=== PATIENT | female | born 1980 | race Caucasian/White ===

== ENCOUNTER 2017-02-17 09:52 | Inpatient (IN) | payer MEDICAID ==
[~2017-02-17] VITALS: Ht 157.5 cm; Wt 66.2 kg
[2017-02-17] MEDS ORDERED: PRENAT PO (10:23)
[2017-02-17 10:24] VITALS: BP 113/56; PULSE 85; RESP 18; Ht 157.5 cm; Wt 66.2 kg
--- NOTE | 2017-02-17 11:14 | TRIAGE ---
OB Triage Datetime Report Generated by CPN: 02/17/2017 11:12 Datetime: 02/17/2017 11:04 Vaginal Exam Dilatation (cms): 3.0 Effacement (%): 50 Station: -2 Exam By: [facility] Membrane Status: Ruptured Membranes Rupture Method: Spontaneous Amniotic Fluid Color: Clear Amniotic Fluid Amount: Moderate Amniotic Fluid Odor: None Vaginal Bleeding: Normal Show Nitrazine: Positive Cervix, Consistency: Moderate Cervix, Position: Midposition Datetime: 02/17/2017 10:22 Assessment Type: Triage Maternal Assessment Level of Consciousness: Fully Conscious DTR's/Clonus: DTRs 2+; No Clonus Headache: Denies Blurred Vision: No Respiratory Effort: Unlabored; Regular Rhythm; Equal Expansion Breath Sounds, Left: Clear and Equal Breath Sounds, Right: Clear and Equal Nausea/Vomiting: Denies RUQ Epigastric Pain: Denies Lower Extremities Edema: None Degree: None Upper Extremities Edema: None Degree: None Facial Edema: None Fall Risk Assessment History of Falling: (0) No Secondary Diagnosis: (0) No Ambulatory Aid: (0) Bedrest/Nurse Assist IV Therapy: (0) No Gait: (0) Normal/Bedrest/Immobile Mental Status: (0) Oriented to Own Ability Fall Score: 0 Fall Risk Score Definition: No Risk: No action required Datetime: 02/17/2017 10:19 Time of Arrival: 02/17/2017 09:47 EGA: 36.5 Arrived By: Ambulatory Arrived From: Home Chief Complaint: pt here c/o possible srom Movement: Present Contractions: Denies/Absent Rupture of Membranes: Unsure Vaginal Bleeding: None Vaginal Discharge: Denies Recent Sexual Intercouse: Denies Abdominal Trauma: Not Applicable Patient Complaints: None Time Provider Notified: 02/17/2017 10:37 Provider Notified: MASTER Initial Plan: ROM PLUS/BPP/SVE Datetime: 02/17/2017 10:18 Labor Evaluation Monitor Mode: External Heart Rate Monitor Mode: External US
--- NOTE | 2017-02-17 11:18 | RADRPT ---
PROCEDURE: OB ultrasound for biophysical profile CLINICAL INDICATION: Contractions. Biophysical profile. . TECHNIQUE: Multiple sonographic images of the pelvis were obtained. Transabdominal view of the gr avid uterus are available for review. The images were reviewed on a PACS workstation. COMPARISON: None FINDINGS: breathing movement = 2/2 tone = 2/2 motion = 2/2 CHAD = 2/2 Single intrauterine gestation is identified in cephalic position. heart rate is 174 bpm. Plac enta is anterior without evidence for abruption or previa. CHAD measures 13.3 cm, within normal limi ts. IMPRESSION: 1. Single live intrauterine gestation. 2. Biophysical profile = 8/8. 3. CHAD = 13.3 cm. RPTAT: EE .Juvenal Velez MD, Date Time Electronically viewed and signed by .Juvenal Velez MD, on 02/17/2017 11:18 .R/
[2017-02-17] MEDS ORDERED: LACTATED RINGER'S 1,000 ML IV PRN (12:10)
[2017-02-17 12:24] LABS: BASOPHILS % 0.1 % (0.0-2.0); EOSINOPHILS % 0.4 % (0.0-7.0); HEMOGLOBIN 12.1 g/dl (12.0-16.0); LYMPHOCYTES # 1.2 10^3/ul (0.8-2.9); LYMPHOCYTES % 15.4 % (15.0-51.0); MEAN CORPUSCULAR HEMOGLOBIN 33.3 pg (29.0-33.0); MEAN CORPUSCULAR HGB CONC 35.6 g/dl (32.0-37.0); MEAN CORPUSCULAR VOLUME 93.7 fl (82.0-101.0); MEAN PLATELET VOLUME 12.9 fl (7.4-10.4); MONOCYTE # 0.4 10^3/ul (0.3-0.9); MONOCYTES % 5.1 % (0.0-11.0); NEUTROPHILS % 78.5 % (39.0-77.0); PLATELET COUNT 140 10^3/UL (140-415); RED BLOOD COUNT 3.63 10^6/ul (4.20-5.40); RED CELL DISTRIBUTION WIDTH 12.9 % (11.5-14.5)
[2017-02-17] MEDS ORDERED: OXYTOCIN 30 UNITS/LR 500 ML IV SCH ×3 (12:30)
[2017-02-17] MEDS ORDERED: AMPICILLIN 2 GM/NS (PMX) 100 ML IV ONE (12:30)
[2017-02-17] MEDS ORDERED: MISOPROSTOL 200 MCG TAB PR PRN ×2 (12:30→22:30)
[2017-02-17] MEDS ORDERED: OXYCODONE/ACETAMINOPHEN (5/325) TAB PO PRN (12:30)
[2017-02-17] MEDS ORDERED: CARBOPROST 250 MCG INJ IM PRN ×2 (12:30→22:30)
[2017-02-17] MEDS ORDERED: METHYLERGONOVINE 0.2 MG INJ IM PRN ×2 (12:30→22:30)
[2017-02-17] MEDS ORDERED: IBUPROFEN 600 MG TAB PO PRN (12:30)
[2017-02-17] MEDS ORDERED: BUTORPHANOL 2 MG INJ IV PRN (12:30)
[2017-02-17] MEDS ORDERED: LIDOCAINE 1% (MPF) 30 ML INJ INJ PRN (12:30)
[2017-02-17] MEDS ORDERED: OXYTOCIN 30 UNITS/LR 500 ML IV PRN ×2 (12:30→22:30)
[2017-02-17] MEDS: LACTATED RINGER'S 1,000 ML IV SCH ×2 (13:00→19:01)
[2017-02-17 13:21] LABS: INR 0.96; PROTIME 12.8 Sec (12.2-14.2)
[2017-02-17 13:22] LABS: PARTIAL THROMBOPLASTIN TIME 30.5 Sec (25.0-35.0)
[2017-02-17] MEDS ORDERED: AMPICILLIN 1 GM/NS (PMX) 50 ML IV SCH (15:30)
--- NOTE | 2017-02-17 19:37 | LDN ---
Date/Time of Note Date/Time of Note DATE: 02/17/17 TIME: 19:35 Delivery Summary Weeks of Gestation 36+ Placenta Delivered: Spontaneously Meconium: none Episiotomy: No Anesthesia type: None Estimated blood loss: 200 Sponge & Needle done & correct: Yes All needle counts correct: Yes Any foreign bodies felt in the: No Problems: Infant Delivery Information Apgars 1 Minute: 9 5 Minute: 9 Suctioning Nose & mouth suctioned at kylee: Yes Delee suction performed: Yes Umbilical Cord Umbilical cord with: 3 Vessels Cord presentations: no nuchal cord Cord Blood was obtained: Yes Mother & Baby Disposition Disposition Mom & Baby to Maternity; Good: Yes Baby to NICU: No ADRY THAO M.D. Feb 17, 2017 19:36
--- NOTE | 2017-02-17 19:38 | HP ---
Date/Time of Note Date/Time of Note DATE: 02/17/17 TIME: 19:37 OB - History Hx of Present Free Text/Dictation Multipara @36+wks GA Care: Good Care Ultrasounds: Normal mid trimester US Medical Complications: None Past Family/Social History * Past Medical, Surgical, Family and Obstetric Histories reviewed from chart. OB Admission Exam Vital Signs Vital Signs Vital Signs Date Time Temp Pulse Resp B/P Pulse Ox O2 Delivery O2 Flow Rate FiO2 02/17/17 10:24 98.5 85 18 113/56 97 Room Air Physical Exam Cervical Dilatation: 6cm Effacement: 75% Station: -1 Membranes: Ruptured Heart Rate: 140's Accelerations: Accelerations Present Decelerations: No Decelerations Varibility: Moderate Contractions on Admission: < 5 Minutes Apart Last 72 hours Lab Results CBC & BMP 02/17/17 11:45 OB Assessment/Plan Reason for admission: observation Plan: Expectant Management ADRY THAO M.D. Feb 17, 2017 19:38
[2017-02-17 22:00] VITALS: BP 102/58; PULSE 70; RESP 20
[2017-02-17 22:30] VITALS: BP 115/59; PULSE 79; RESP 20
[2017-02-17] MEDS ORDERED: SENNA/DOCUSATE NA (8.6MG/50MG) TAB PO PRN (22:30)
[2017-02-17] MEDS ORDERED: ONDANSETRON 4 MG INJ IV PRN (22:30)
[2017-02-17] MEDS ORDERED: BENZOCAINE 20% 56 ML SPRAY TOP PRN (22:30)
[2017-02-17] MEDS ORDERED: LANOLIN 7 GM TUBE TOP PRN (22:30)
[2017-02-17] MEDS ORDERED: OXYCODONE/ASPIRIN (4.88/325) TAB PO PRN (22:30)
[2017-02-17] MEDS ORDERED: ZOLPIDEM 5 MG TAB PO PRN (22:30)
[2017-02-17] MEDS ORDERED: WITCH HAZEL/GLYCERIN PAD PR PRN (22:30)
[2017-02-18] VITALS: BP 102/51; PULSE 69; RESP 20
[2017-02-18] MEDS: LACTATED RINGER'S 1,000 ML IV* SCH ×3 (00:54→14:10)
[2017-02-18] MEDS: IBUPROFEN 600 MG TAB PO SCH ×4 (00:54→17:44)
[2017-02-18 04:00] VITALS: BP 96/53; PULSE 63; RESP 20
[2017-02-18] MEDS: SENNA/DOCUSATE NA (8.6MG/50MG) TAB PO SCH ×2 (09:43→20:52)
[2017-02-18 09:44] LABS: BASOPHILS % 0.2 % (0.0-2.0); EOSINOPHILS # 0.1 10^3/ul (0.0-0.5); EOSINOPHILS % 0.8 % (0.0-7.0); HEMATOCRIT 30.7 % (37.0-47.0); HEMOGLOBIN 10.8 g/dl (12.0-16.0); LYMPHOCYTES # 1.3 10^3/ul (0.8-2.9); LYMPHOCYTES % 13.8 % (15.0-51.0); MEAN CORPUSCULAR HEMOGLOBIN 33.3 pg (29.0-33.0); MEAN CORPUSCULAR HGB CONC 35.2 g/dl (32.0-37.0); MEAN CORPUSCULAR VOLUME 94.8 fl (82.0-101.0); MEAN PLATELET VOLUME 12.2 fl (7.4-10.4); MONOCYTE # 0.6 10^3/ul (0.3-0.9); MONOCYTES % 6.9 % (0.0-11.0); PLATELET COUNT 152 10^3/UL (140-415); RED BLOOD COUNT 3.24 10^6/ul (4.20-5.40); RED CELL DISTRIBUTION WIDTH 12.9 % (11.5-14.5); WHITE BLOOD COUNT 9.1 10^3/ul (4.8-10.8)
[2017-02-18] MEDS: MAGNESIUM HYDROXIDE 30ML CUP PO SCH ×2 (09:44→20:52)
[2017-02-18 12:30] VITALS: BP 96/55; PULSE 60; RESP 18
[2017-02-18 16:46] VITALS: BP 102/58; PULSE 72; RESP 18
[2017-02-18 20:45] VITALS: BP 110/60; PULSE 64; RESP 19
[2017-02-19] MEDS: IBUPROFEN 600 MG TAB PO SCH ×3 (00:06→12:00)
[2017-02-19 04:00] VITALS: BP 107/56; PULSE 73; RESP 18
[2017-02-19 08:00] VITALS: BP 102/53; PULSE 59; RESP 18
[2017-02-19] MEDS: SENNA/DOCUSATE NA (8.6MG/50MG) TAB PO SCH (09:00)
[2017-02-19] MEDS ORDERED: DIPHTH/TET/ACEL PERTUSS (ADULT) 0.5 ML VIAL IM* ONE (09:00)
[2017-02-19] MEDS: MAGNESIUM HYDROXIDE 30ML CUP PO SCH (09:00)
== END 2017-02-19 16:16 | disposition home or self-care (01) | DRG 775 ==
LOC: OBT 09:52 → L-D 09:53 → OBT 11:26 → L-D 11:27 → PP1 21:52
PROVIDERS: ADMIT Obstetrics & Gynecology; ATTEND Obstetrics & Gynecology
PROC: 10E0XZZ Delivery of Products of Conception, External Approach (ICD-10-PCS; principal; 2017-02-17)
PROC: 4A1HX4Z Monitoring of Products of Conception, Cardiac Electrical Activity, External Approach (ICD-10-PCS; 2017-02-17)
PROC: 3E0234Z Introduction of Serum, Toxoid and Vaccine into Muscle, Percutaneous Approach (ICD-10-PCS; 2017-02-19)
DX: O60.14X0 Preterm labor third trimester with preterm delivery third trimester, not applicable or unspecified (principal); Z3A.36 36 weeks gestation of pregnancy; Z23 Encounter for immunization; Z37.0 Single live birth
CPT/HCPCS: 76818; 84112; 85025; 85610; 85730; 86592; 86900; 86901; 90715; 99464; G0463; J2590; J7120